=== PATIENT | female | born 1980 | race African-American/Black ===

== ENCOUNTER 2022-02-04 10:06 | Inpatient (IN) ==
[2022-02-04] MEDS ORDERED: FAMOTIDINE 20 MG/2 ML VIAL IV ONE (10:20)
[2022-02-04] MEDS ORDERED: CITRIC ACID/SODIUM CITRATE 30 ML UDCUP PO ONE (10:20)
[2022-02-04] MEDS ORDERED: miSOPROStoL 200 MCG TABLET RECTAL PRN (10:20)
[2022-02-04] MEDS ORDERED: ceFAZolin 3,000 MG in SYRINGE 1 EACH IV ONE (10:20)
[2022-02-04] MEDS ORDERED: CARBOPROST TROMETHAMINE 250 MCG/ML AMP IM PRN (10:20)
[2022-02-04] MEDS ORDERED: TRANEXAMIC ACID 1,000 MG in SODIUM CHLORIDE 0.9% 100 ML IV PRN (10:20)
[2022-02-04] MEDS ORDERED: OXYTOCIN/LR 20 UNIT/1,000 ML BAG IV ONE ×2 (10:20→18:06)
[2022-02-04] MEDS ORDERED: METHYLERGONOVINE 0.2 MG/1 ML AMP IM PRN (10:20)
[2022-02-04] MEDS ORDERED: LACTATED RINGERS 1,000 ML IV SCH ×2 (10:30→18:30)
[2022-02-04 10:42] LABS: Basophils % 0.4 % (0.0-0.8); Eosinophils # 0.1 10*3/uL (0.0-0.87); Eosinophils % 0.7 % (0.00-10.9); Hematocrit 39.2 VOL% (35.7-47.0); Hemoglobin 13.4 GM/DL (12.0-16.0); Immature Granulocytes % 1.6 %; Immature Granulocytes Absolute 0.13 #; Lymphocytes # 1.5 10*3/uL (1.4-4.0); Lymphocytes % 18.3 % (21.3-54.2); Mean Corpuscular HGB Conc 34.2 GM/DL (32-36); Mean Corpuscular Volume 93.3 FL (87-102); Mean Platelet Volume 11.8 FL (9.6-12.0); Monocytes % 8.2 % (1.7-12.7); Neutrophils % 70.8 % (38.7-73.9); Platelet Count 239 T/CUMM (130-400); Red Cell Distribution Width 12.7 % (9.3-17.3); White Blood Count 8.1 T/CUMM (4-12)
[2022-02-04] MEDS ORDERED: OXYTOCIN 10 UNIT/ML VIAL IM ONE (13:03)
[2022-02-04] MEDS ORDERED: OXYTOCIN 30 UNIT in LACTATED RINGERS 1,000 ML IV ONE (13:03)
[2022-02-04] MEDS ORDERED: buprenorphine HCL 0.3 MG/ML VIAL ONE (14:21)
[2022-02-04] MEDS ORDERED: ACETAMINOPHEN INJ 1,000 MG/100 ML VIAL IV ONE (14:21)
[2022-02-04] MEDS ORDERED: PHENYLEPHRINE 1 MG/10 ML SYRINGE IV ONE (14:21)
[2022-02-04] MEDS ORDERED: KETOROLAC 30 MG/1 ML VIAL ONE (14:21)
[2022-02-04] MEDS ORDERED: ONDANSETRON 4 MG/2 ML VIAL ONE (14:21)
[2022-02-04] MEDS ORDERED: LACTATED RINGERS 1,000 ML IV ONE (15:06)
[2022-02-04] MEDS ORDERED: MIDAZOLAM 2 MG/2 ML VIAL ONE (15:55)
[2022-02-04 15:57] LABS: Cord Arterial Blood HCO3 23.1 MMOL/L
[2022-02-04 16:00] LABS: Cord Venous Blood HCO3 23.7 MMOL/L; Cord Venous Blood PCO2 51.9 MMHG; Cord Venous Blood PO2 30.1
[2022-02-04 16:14] LABS: Bacteria,Urine Occasional /HPF (Few); Mucus,Urine Occasional /LPF (Occasional); RBC,Urine <1 /HPF (0-4); Squamous Epithelial Cell,Urine Occasional /HPF (0-10)
[2022-02-04 16:16] LABS: Glucose,Urine (UA) Negative (Negative); Ketones,Urine 15 mg/dL (Negative); Nitrite,Urine Negative (Negative); Protein,Urine Negative (Negative); Urine Appearance Clear (Clear); Urine Color Yellow (Yellow); Urine pH 6.5 (4.5-8.0)
[2022-02-04 16:17] LABS: Bilirubin,Urine Negative (Negative); Blood, Urine Negative (Negative); Urine Urobilinogen < 2.0 eU/dL (<2.0)
[2022-02-04] MEDS ORDERED: ACETAMINOPHEN 325 MG TABLET PO PRN (18:06)
[2022-02-04] MEDS ORDERED: ONDANSETRON 4 MG/2 ML VIAL IV PRN (18:06)
[2022-02-04] MEDS ORDERED: RHO(D) IMMUNE GLOBULIN 300 MCG SYRINGE IM ONE (18:06)
[2022-02-04] MEDS: DOCUSATE SODIUM 100 MG CAPSULE PO SCH (23:07)
[2022-02-05 00:39] LABS: Basophils % 0.3 % (0.0-0.8); Eosinophils % 0.1 % (0.00-10.9); Hematocrit 38.6 VOL% (35.7-47.0); Hemoglobin 12.9 GM/DL (12.0-16.0); Immature Granulocytes % 0.7 %; Immature Granulocytes Absolute 0.09 #; Lymphocytes % 7.3 % (21.3-54.2); Mean Corpuscular HGB Conc 33.4 GM/DL (32-36); Mean Corpuscular Volume 94.4 FL (87-102); Mean Platelet Volume 12.1 FL (9.6-12.0); Monocytes % 5.4 % (1.7-12.7); Neutrophils % 86.2 % (38.7-73.9); Platelet Count 216 T/CUMM (130-400); Red Blood Count 4.09 MC/CUMM (3.8-5.5); Red Cell Distribution Width 12.7 % (9.3-17.3); White Blood Count 13.4 T/CUMM (4-12)
[2022-02-05] MEDS: ACETAMINOPHEN 500 MG TABLET PO SCH ×2 (01:15→09:26)
[2022-02-05] MEDS: KETOROLAC 30 MG/1 ML VIAL IV SCH ×2 (01:16→09:24)
[2022-02-05] MEDS ORDERED: KETOROLAC 30 MG/1 ML VIAL IV SCH (02:00)
[2022-02-05] MEDS ORDERED: ACETAMINOPHEN 500 MG TABLET PO SCH (02:00)
[2022-02-05 06:59] LABS: Basophils # 0.1 10*3/uL (0.0-0.2); Basophils % 0.4 % (0.0-0.8); Eosinophils # 0.1 10*3/uL (0.0-0.87); Eosinophils % 0.7 % (0.00-10.9); Hematocrit 38.1 VOL% (35.7-47.0); Hemoglobin 12.7 GM/DL (12.0-16.0); Immature Granulocytes % 0.7 %; Immature Granulocytes Absolute 0.09 #; Lymphocytes # 1.9 10*3/uL (1.4-4.0); Lymphocytes % 13.9 % (21.3-54.2); Mean Corpuscular HGB Conc 33.3 GM/DL (32-36); Mean Corpuscular Volume 94.3 FL (87-102); Mean Platelet Volume 11.8 FL (9.6-12.0); Monocytes % 5.9 % (1.7-12.7); Neutrophils % 78.4 % (38.7-73.9); Platelet Count 236 T/CUMM (130-400); Red Blood Count 4.04 MC/CUMM (3.8-5.5); Red Cell Distribution Width 12.8 % (9.3-17.3); White Blood Count 13.4 T/CUMM (4-12)
[2022-02-05 07:18] LABS: Hypochromia Slight; Lymphocytes 17 % (20-55); Microcytosis Slight; Platelet Estimate Adequate; Segmented Neutrophils 74 % (50-85); Total Cells Counted 100
[2022-02-05] MEDS: MAGNESIUM HYDROXIDE SUSP 30 ML UDCUP PO PRN (09:24)
[2022-02-05] MEDS: METOCLOPRAMIDE 10 MG TABLET PO SCH ×2 (09:26→16:55)
[2022-02-05] MEDS: MULTIVITAMIN (PRENATAL) TABLET PO SCH (09:26)
[2022-02-05] MEDS: DOCUSATE SODIUM 100 MG CAPSULE PO SCH ×2 (09:26→21:02)
[2022-02-05] MEDS: SIMETHICONE CHEW 80 MG TABLET PO PRN (09:26)
[2022-02-05] MEDS: NICOTINE 21 MG/24 HR PATCH TRANSDERM SCH (16:56)
[2022-02-05] MEDS ORDERED: ALBUTEROL 0.63 MG/3 ML NEB RESP TX ONE (20:58)
[2022-02-05] MEDS: IBUPROFEN 800 MG TABLET PO PRN (21:02)
[2022-02-06] MEDS: SIMETHICONE CHEW 80 MG TABLET PO PRN (03:30)
[2022-02-06] MEDS: IBUPROFEN 800 MG TABLET PO PRN (05:54)
[2022-02-06] MEDS: MAGNESIUM HYDROXIDE SUSP 30 ML UDCUP PO PRN (05:55)
[2022-02-06 07:16] VITALS: BP 125/77
[2022-02-06] MEDS: MULTIVITAMIN (PRENATAL) TABLET PO SCH (08:45)
[2022-02-06] MEDS: DOCUSATE SODIUM 100 MG CAPSULE PO SCH (08:45)
[2022-02-06] MEDS: NICOTINE 21 MG/24 HR PATCH TRANSDERM SCH (09:44)
[2022-02-06] MEDS ORDERED: DIPH/TET/ACEL PERT BOOSTER VACCINE 0.5 ML VIAL IM ONE (11:00)
== END 2022-02-06 12:25 | disposition home or self-care (01) | DRG 540 ==
LOC: N.LD 10:06 → N.OB 21:20
PROVIDERS: ADMIT Obstetrics & Gynecology; ATTEND Obstetrics & Gynecology
PROC: LDCSECT (ICD-10-PCS; 2022-02-04 14:00)